=== PATIENT | male | born 1995 | race Two or more races ===

== ENCOUNTER 2020-04-05 23:16 | Emergency (ER) | payer SELFPAY ==
--- NOTE | 2020-04-05 23:28 | EDM.PDOC ---
ED HPI GENERAL MEDICAL PROBLEM - General Chief Complaint: Drug or Alcohol Abuse Stated Complaint: POSSIBLE OD Time Seen by Provider: 04/05/20 23:23 Source of Information: Reports: Patient - History of Present Illness INITIAL COMMENTS - FREE TEXT/NARRATIVE: Patient Is a 24-year-old male who is brought in by EMS after being found sleeping on a bench. Someone thought the patient was breathing funny wanted him evaluated. Patient is very sleepy but arousable on examination. Patient has history of drug use. Patient here denies any drug use and is ANO x3 and answering all questions appropriately. Patient denies any medical complaints. - Related Data Allergies Allergy/AdvReac Type Severity Reaction Status Date / Time No Known Allergies Allergy Verified 04/05/20 23:24 Home Meds: Home Meds . [No Known Home Meds] 04/05/20 [History] ED ROS GENERAL - Review of Systems Review Of Systems: See Below Constitutional: Reports: No Symptoms HEENT: Reports: No Symptoms Respiratory: Reports: No Symptoms Cardiovascular: Reports: No Symptoms Endocrine: Reports: No Symptoms GI/Abdominal: Reports: No Symptoms : Reports: No Symptoms Musculoskeletal: Reports: No Symptoms Skin: Reports: No Symptoms Neurological: Reports: No Symptoms Psychiatric: Reports: No Symptoms Hematologic/Lymphatic: Reports: No Symptoms Immunologic: Reports: No Symptoms ED EXAM, GENERAL - Physical Exam Exam: See Below Exam Limited By: No Limitations General Appearance: Alert, No Apparent Distress Eye Exam: Bilateral Eye: EOMI, PERRL Head: Atraumatic Respiratory/Chest: No Respiratory Distress, Lungs Clear, Normal Breath Sounds Cardiovascular: Regular Rate, Rhythm GI/Abdominal: Normal Bowel Sounds, Soft, Non-Tender Extremities: Normal Inspection, Normal Range of Motion Neurological: Alert, Oriented, CN II-XII Intact, Normal Cognition, Normal Gait #1 Interpretation EKG Date: 04/05/20 Time: 11:30 Rhythm: NSR Rate (Beats/Min): 79 ST-T: Normal Course - Vital Signs Last Recorded V/S: Last Vital Signs Temp 97.4 F 04/06/20 01:05 Pulse 89 04/06/20 01:05 Resp 14 04/06/20 01:05 BP 140/79 04/06/20 01:05 Pulse Ox 99 04/06/20 01:05 - Orders/Labs/Meds Orders: Active Orders 24 hr Category Date Time Status EKG Documentation Completion [RC] STAT Care 04/05/20 23:30 Active DRUG SCREEN, URINE [URCHEM] Stat Lab 04/05/20 23:25 Ordered Labs: Laboratory Tests 04/05/20 04/05/20 04/05/20 Range/Units 23:19 23:19 23:19 WBC 12.71 H (4.0-11.0) K/uL RBC 4.38 L (4.50-5.90) M/uL Hgb 13.5 (13.0-17.0) g/dL Hct 41.1 (38.0-50.0) % MCV 93.8 (80.0-98.0) fL MCH 30.8 (27.0-32.0) pg MCHC 32.8 (31.0-37.0) g/dL RDW Std Deviation 46.7 (28.0-62.0) fl RDW Coeff of Vaibhav 14 (11.0-15.0) % Plt Count 285 (150-400) K/uL MPV 9.80 (7.40-12.00) fL Neut % (Auto) 65.4 (48.0-80.0) % Lymph % (Auto) 25.9 (16.0-40.0) % [place] % (Auto) 7.2 (0.0-15.0) % Eos % (Auto) 1.3 (0.0-7.0) % Baso % (Auto) 0.2 (0.0-1.5) % Neut # (Auto) 8.3 H (1.4-5.7) K/uL Lymph # (Auto) 3.3 H (0.6-2.4) K/uL [place] # (Auto) 0.9 H (0.0-0.8) K/uL Eos # (Auto) 0.2 (0.0-0.7) K/uL Baso # (Auto) 0.0 (0.0-0.1) K/uL Nucleated RBC % 0.0 /100WBC Nucleated RBCs # 0 K/uL Sodium 145 (136-148) mmol/L Potassium 3.7 (3.5-5.1) mmol/L Chloride 109 H (98-107) mmol/L Carbon Dioxide 29.2 (21.0-32.0) mmol/L BUN 11 (7.0-18.0) mg/dL Creatinine 0.8 (0.8-1.3) mg/dL Est Cr Clr Drug Dosing TNP Estimated GFR (MDRD) > 60.0 ml/min Glucose 143 H (74-106) mg/dL Calcium 8.8 (8.5-10.1) mg/dL Total Bilirubin 0.2 (0.2-1.0) mg/dL AST 12 L (15-37) IU/L ALT 30 (14-63) IU/L Alkaline Phosphatase 122 H (46-116) U/L Troponin I < 0.050 (0.000-0.056) ng/mL Total Protein 6.9 (6.4-8.2) g/dL Albumin 3.7 (3.4-5.0) g/dL Globulin 3.2 (2.6-4.0) g/dL Albumin/Globulin Ratio 1.2 (0.9-1.6) Ethyl Alcohol 3 mg/dL Meds: Medications Discontinued Medications Generic Name Dose Route Start Last Admin Trade Name Freq PRN Reason Stop Dose Admin Sodium Chloride 1,000 mls @ 999 mls/hr 04/05/20 23:46 04/05/20 23:50 Normal Saline IV 04/06/20 00:46 999 mls/hr .BOLUS ONE Administration - Re-Assessments/Exams Free Text/Narrative Re-Assessment/Exam: 04/06/20 01:07 Patient labs reviewed. Patient is now more alert and awake. Patient is ambulating back and forth to the bathroom without assistance. Patient also tolerating p.o. patient. Patient will be discharged into police custody. Departure - Departure Time of Disposition: 01:07 Disposition: Home, Self-Care 01 Condition: Good Clinical Impression: General medical examination - Discharge Information *PRESCRIPTION DRUG MONITORING PROGRAM REVIEWED*: Not Applicable *COPY OF PRESCRIPTION DRUG MONITORING REPORT IN PATIENT DAVIS: Not Applicable Instructions: Medical Screening Exam Forms: ED Department Discharge Additional Instructions: The following information is given to patients seen in the emergency department who are being discharged to home. This information is to outline your options for follow-up care. We provide all patients seen in our emergency department with a follow-up referral. The need for follow-up, as well as the timing and circumstances, are variable depending upon the specifics of your emergency department visit. If you don't have a primary care physician on staff, we will provide you with a referral. We always advise you to contact your personal physician following an emergency department visit to inform them of the circumstance of the visit and for follow-up with them and/or the need for any referrals to a consulting specialist. The emergency department will also refer you to a specialist when appropriate. This referral assures that you have the opportunity for follow-up care with a specialist. All of these measure are taken in an effort to provide you with optimal care, which includes your follow-up. Under all circumstances we always encourage you to contact your private physician who remains a resource for coordinating your care. When calling for follow-up care, please make the office aware that this follow-up is from your recent emergency room visit. If for any reason you are refused follow-up, please contact the [facility] Emergency D epartment at and asked to speak to the emergency department charge nurse. Please follow up with your primary care physician. If you do not have a primary care physician, see below: [facility] [address] [place] [id number] My [facility] [address] [place] [id number] To the ED if you have any worsening symptoms. Sepsis Event Note (ED) - Evaluation Sepsis Screening Result: No Definite Risk - Focused Exam Vital Signs: Vital Signs Temp Pulse Resp BP Pulse Ox 04/06/20 01:05 97.4 F 89 14 140/79 99 04/05/20 23:36 87 18 140/78 97 04/05/20 23:21 98.1 F 109 H 8 L 130/76 95 - My Orders Last 24 Hours: My Active Orders 04/05/20 23:25 DRUG SCREEN, URINE [URCHEM] Stat 04/05/20 23:30 EKG Documentation Completion [RC] STAT - Assessment/Plan Last 24 Hours: My Active Orders 04/05/20 23:25 DRUG SCREEN, URINE [URCHEM] Stat 04/05/20 23:30 EKG Documentation Completion [RC] STAT Plan: Patient is a 24-year-old male comes in today for possible drug use. Patient is sleepy on exam but arousable. Patient has a history of opioid use. Will obtain labs and reassess.
[2020-04-05] MEDS ORDERED: Sodium Chloride 0.9% 1,000 ML IV ONE (23:46)
[2020-04-05 23:49] LABS: BLOOD UREA NITROGEN,BUN 11 mg/dL (7.0-18.0); CARBON DIOXIDE,CO2 29.2 mmol/L (21.0-32.0); CHLORIDE,CL 109 mmol/L (98-107); GLUCOSE RANDOM 143 mg/dL (74-106); POTASSIUM,K 3.7 mmol/L (3.5-5.1); SODIUM,NA 145 mmol/L (136-148)
[2020-04-06] MEDS ORDERED: Acetaminophen 500 MG Tab PO ONE (01:15)
== END 2020-04-06 01:21 | disposition home or self-care (01) ==
LOC: MW.ED 23:16
DX: Z00.00 Encounter for general adult medical examination without abnormal findings (principal)
CPT/HCPCS: 36415; 80053; 80307; 84484; 85025; 93005; 93010; 99282; 99283-25; A9270-GY; J7030